=== PATIENT | female | born 1945 | race Hispanic/Latino ===

== ENCOUNTER 2018-08-18 16:35 | Emergency (ER) | payer MEDICARE, OTHER ==
[2018-08-18] MEDS ORDERED: Acetaminophen 500 MG TAB ONE (17:05)
--- NOTE | 2018-08-18 18:57 | RAD ---
CHEST 2 VIEWS: Date: 08/18/18 HISTORY: Fever. Cough. COMPARISON: None. FINDINGS: There are sternotomy wires. Atherosclerosis of aorta. Heart is enlarged. Pulmonary vessels are slight ly prominent. Lung volumes are diminished, which result in accentuation of the interstitium. No defin ite consolidation or masses. No pneumothorax or osseous abnormalities. IMPRESSION: Diminished lung volumes which may be due to poor inspiratory effort. There is a resultant accentuatio n of the pulmonary vasculature and interstitium. Continued surveillance is recommended. Repeat imagin g should be performed with encouragement of better inspiration. POS: PPP
[2018-08-18 19:19] LABS: ALT (SGPT) 20 U/L (8-55); AST (SGOT) 29 U/L (5-34); Albumin 3.6 g/dL (3.4-4.8); Alkaline Phosphatase 86 U/L (40-150); Anion Gap 14 mmol/L (10-20); BUN (Urea Nitrogen) 22 mg/dL (9.8-20.1); Bilirubin, Total 0.3 mg/dL (0.2-1.2); Calc. Creatinine Clearance 0 mL/min (70-130); Calcium 9.1 mg/dL (7.8-10.44); Carbon Dioxide 24 mmol/L (23-31); Chloride 99 mmol/L (98-107); Estimated GFR-MDRD 66; Globulin 3.2 g/dL (2.4-3.5); Glucose 270 mg/dL (83-110); Potassium 4.4 mmol/L (3.5-5.1); Protein, Total 6.8 g/dL (6.0-8.3); Sodium 133 mmol/L (136-145)
[2018-08-18 19:20] LABS: Hemoglobin 12.2 g/dL (12.0-16.0); Mean Corpuscular HGB CONC 32.6 g/dL (32.0-36.0); Mean Corpuscular Hemoglobin 29.9 pg (27.0-31.0); Mean Corpuscular Volume 91.6 fL (78.0-98.0); Mean Platelet Volume 8.6 fL (7.4-10.4); Platelet Count 255 thou/uL (130-400); RBC Distribution Width 13.6 % (11.5-14.5); Red Blood Cell (RBC) Count 4.08 mill/uL (4.20-5.40); White Blood Cell (WBC) Count 9.5 thou/uL (4.8-10.8)
[2018-08-18 19:23] LABS: Band 3 % (5-11); Eosinophils 1 % (0-10); Lymphocytes 6 % (21-51); MDiff Complete? YES; Monocytes 10 % (0-10); Neutrophil 77 % (42-75); Platelet Morphology Comment Appears Adequate; RBC Morphology Normal; Reactive Lymphocytes 3 % (0-10)
--- NOTE | 2018-08-18 20:19 | RAD ---
CHEST 2 VIEWS: Date: 08/18/18 COMPARISON: 08/18/18 at 1712 hours. HISTORY: Cough. FINDINGS: When compared to the previous examination, there is slightly better inspiration. There are sternotomy wires. Heart size is upper normal. There is atherosclerosis of the aorta. Pulmonary vessels are slig htly prominent. Patchy interstitial opacities are felt to be due to edema, rather than an infiltrate. No definite consolidation or mass. No pneumothorax or osseous abnormalities. IMPRESSION: Improved aeration of lung parenchyma. Interstitial prominence is felt to be due to edema, rather than an infiltrate. There is mild pulmonary vascular congestion. Correlate for congestive heart failure. POS: PPP
== END 2018-08-18 20:34 | disposition home or self-care (01) ==
LOC: SCSER 16:35
DX: J11.1 Influenza due to unidentified influenza virus with other respiratory manifestations (principal); E11.65 Type 2 diabetes mellitus with hyperglycemia; E78.5 Hyperlipidemia, unspecified; Z79.899 Other long term (current) drug therapy; Z79.4 Long term (current) use of insulin
CPT/HCPCS: 71046; 80053; 83605; 83880; 84484; 85025; 87040; 87804; 93005